=== PATIENT | male | born 1970 | race Caucasian/White ===

== ENCOUNTER 2024-01-01 08:38 | Outpatient (CLI) | payer BC, SELFPAY ==
--- NOTE | ~2024-01-01 | US_ITS ---
Limited Abdominal Sonogram: Real-time sonographic imaging of the right upper quadrant was performed. Clinical History: Abnormal liver enzymes Findings: The liver appears mildly echogenic with no evidence of mass lesion or bile duct dilatation . Main portal vein demonstrates normal direction of flow. The gallbladder is well distended, and appe ars normal with no evidence of gallstone or wall thickening. The common bile duct measures 5 mm. The visualized pancreas, aorta, and IVC are unremarkable. Impression: Probable mild fatty infiltration of liver. Reviewed, dictated and finalized at location M. Impression: Probable mild fatty infiltration of liver.
== END 2024-01-01 08:39 | disposition home or self-care (01) ==
LOC: GOSHIMG 08:39
PROVIDERS: PCP Family Medicine; Visit Provider Family Medicine
DX: R74.01 Elevation of levels of liver transaminase levels (principal); R70.1 Abnormal plasma viscosity
CPT/HCPCS: 76705